=== PATIENT | female | born 1955 | race African-American/Black ===

== ENCOUNTER 2016-10-12 12:24 | Emergency (ER) | payer OTHER ==
[~2016-10-12] VITALS: Ht 154.9 cm; Wt 51.0 kg
[~2016-10-12 12:24] MED LIST: ALBUAER3 INH; AMIT1TAB79 PO; ASPI81CH CHEW; CLON.5 PO; FEXO1TAB97 PO; LISI-519 PO; MECL25CH CHEW; MEGE40TA PO; METH750T PO; METO25TA3 PO; PERC7.5T13 PO; PROM25TA5 PO; VENTAER INH; ZOFR4TAB PO
[2016-10-12 12:27] VITALS: BP 146/99; PULSE 105; RESP 17; TEMP 98.1; O2SAT 98
[2016-10-12] MEDS ORDERED: SODIUM CHLORIDE 0.9% FLUSH 10 ML FLUSH IVF PRN (12:45)
--- NOTE | 2016-10-12 12:49 | PD ---
HPI Chief Complaint: Cardiac Complaint Time Seen by Provider: 12:44 Travel History International Travel<30 days: No Contact w/Intl Traveler<30days: No Traveled to known affect area: No History of Present Illness HPI 60-year-old female presents to the emergency department for evaluation of hypertension. She states she went to her pain management physician on Sunday and her blood pressure was 176 all. She states this is not normal for her. She states that she was on lisinopril 5 mg daily, but has not for 3 months due to mail order issues. The patient reports history of hypertension, asthma, COPD , chronic sciatica. She denies drinking alcohol or using tobacco products. She does state she smokes marijuana. The patient denies any cardiac history. No history of congestive heart failure, NE. She denies any previous surgeries. She does state that she has been short of breath with dizziness and palpitations since over the weekend. She denies any chest pain. Patient denies any recent travel or surgeries. No history DVT or PE. She denies any leg edema. No hemoptysis. She states the symptoms are not new to her as she always gets the symptoms that she runs out of her blood pressure medication. She denies any cough or congestion. Patient is only requesting refill of her medication at this time. PFSH Past Medical History Asthma: Yes Anxiety: Yes Depression: Yes Cancer: Yes (COLON-2015) Cardiovascular Problems: Yes (SKIPS BEAT/RAPID HEART RATE) High Cholesterol: Yes Diminished Hearing: No GERD: Yes Hypertension: Yes Kidney Stones: Yes Musculoskeletal: Yes (SCIATICA) Respiratory: Yes (asthma) Immunizations Current: Yes Migraines: Yes ?: Not LMP: MENOPAUSAL Menopausal: Yes : 3 Para: 3 Tubal Ligation: Yes Past Surgical History Abdominal Surgery: Yes (COLON/BIOPSY 11/05/14, COLON SURGERY R/T [place]) Cholecystectomy: Yes Hysterectomy: No Social History Alcohol Use: No Tobacco Use: No (2013 QUIT) Substance Use: Yes (MARIJUANA) Allergies-Medications (Allergen,Severity, Reaction): Coded Allergies: Dilaudid (Verified Allergy, Severe, Nausea/Vomiting, 10/12/16) "I BROKE OUT IN A SWEAT, FELT HOT ALL OVER AND WAS FREAKING OUT" Zithromax (Verified Allergy, Intermediate, RASH, ITCHING, 10/12/16) Keflex (Verified Allergy, Mild, RASH, 10/12/16) Tramadol (Verified Allergy, Mild, Rash, 10/12/16) on back of neck Reported Meds & Prescriptions Reported Meds & Active Scripts Active Elavil (Amitriptyline HCl) 25 Mg Tab 0.5 Mg PO HS Reported Megestrol (Megestrol Acetate) 40 Mg Tab 40 Mg PO QID Lisinopril 5 Mg Tab 5 Mg PO DAILY Aspirin 81 Mg Chew 81 Mg CHEW DAILY Phenergan (Promethazine HCl) 25 Mg Tab 25 Mg PO Q6H PRN Klonopin (Clonazepam) 0.5 Mg Tab 0.5 Mg PO BID Zofran (Ondansetron HCl) 4 Mg Tab 4 Mg PO Q6HR PRN Methocarbamol 750 Mg Tab 750 Mg PO QID Meclizine (Meclizine HCl) 25 Mg Chew 25 Mg CHEW TID Loraine-D 24 Hour Allergy (Fexofenadine-Pseudoephedrine ER 24 HR) 180-240 Escobar 1 Tab PO DAILY Proair Hfa 8.5 GM Inh (Albuterol Sulfate) 90 Mcg/Act Aer 1 Puff INH Q6HR PRN 108 mcg/actuation Ventolin Hfa 18 GM Inh (Albuterol Sulfate) 90 Mcg/Act Aer 2 Puff INH Q4H PRN Review of Systems Except as stated in HPI: all other systems reviewed are Neg Physical Exam Narrative GENERAL: Well-nourished, well-developed female patient, ambulatory. Afebrile. SKIN: Focused skin assessment warm/dry. HEAD: Normocephalic. Atraumatic. EYES: No scleral icterus. No injection or drainage. NECK: Supple, trachea midline. No JVD or lymphadenopathy. CARDIOVASCULAR: Regular rate and rhythm without murmurs, gallops, or rubs. RESPIRATORY: Breath sounds equal bilaterally. No accessory muscle use. Lungs sounds are clear to auscultation. GASTROINTESTINAL: Abdomen soft, non-tender, nondistended. MUSCULOSKELETAL: No cyanosis, or edema. BACK: Nontender without obvious deformity. No CVA tenderness. Data Data Last Documented VS Vital Signs Date Time Temp Pulse Resp B/P Pulse Ox O2 Delivery O2 Flow Rate FiO2 10/12/16 13:17 99 Room Air 10/12/16 12:27 98.1 105 17 146/99 Orders Electrocardiogram (10/12/16 12:42) Basic Metabolic Panel (Bmp) (10/12/16 12:42) Ckmb (Isoenzyme) Profile (10/12/16 12:42) Complete Blood Count With Diff (10/12/16 12:42) Magnesium (Mg) (10/12/16 12:42) Troponin I (10/12/16 12:42) Chest, Single Ap (10/12/16 12:42) Ecg Monitoring (10/12/16 12:42) Bilateral Bp Monitoring (10/12/16 12:42) Iv Access Insert/Monitor (10/12/16 12:42) Oximetry (10/12/16 12:42) Oxygen Administration (10/12/16 12:42) Sodium Chloride 0.9% Flush (Ns Flush) (10/12/16 12:45) Labs Laboratory Tests Test 10/12/16 12:50 White Blood Count 3.9 TH/MM3 Red Blood Count 4.68 MIL/MM3 Hemoglobin 11.6 GM/DL Hematocrit 36.2 % Mean Corpuscular Volume 77.3 FL Mean Corpuscular Hemoglobin 24.8 PG Mean Corpuscular Hemoglobin 32.1 % Concent Red Cell Distribution Width 14.6 % Platelet Count 262 TH/MM3 Mean Platelet Volume 8.7 FL Neutrophils (%) (Auto) 24.4 % Lymphocytes (%) (Auto) 58.8 % Monocytes (%) (Auto) 10.9 % Eosinophils (%) (Auto) 5.3 % Basophils (%) (Auto) 0.6 % Neutrophils # (Auto) 0.9 TH/MM3 Lymphocytes # (Auto) 2.3 TH/MM3 Monocytes # (Auto) 0.4 TH/MM3 Eosinophils # (Auto) 0.2 TH/MM3 Basophils # (Auto) 0.0 TH/MM3 CBC Comment AUTO DIFF Differential Total Cells 100 Counted Neutrophils % (Manual) 31 % Lymphocytes % 56 % Monocytes % 9 % Eosinophils % 4 % Neutrophils # (Manual) 1.2 TH/MM3 Differential Comment FINAL DIFF MANUAL Platelet Estimate NORMAL Platelet Morphology Comment NORMAL Ovalocytes 1+ Sodium Level 140 MEQ/L Potassium Level 3.3 MEQ/L Chloride Level 107 MEQ/L Carbon Dioxide Level 25.7 MEQ/L Anion Gap 7 MEQ/L Blood Urea Nitrogen 9 MG/DL Creatinine 0.70 MG/DL Estimat Glomerular Filtration 103 ML/MIN Rate Random Glucose 84 MG/DL Calcium Level 9.1 MG/DL Magnesium Level 1.9 MG/DL Total Creatine Kinase 74 U/L Troponin I LESS THAN 0.02 NG/ML MDM Medical Decision Making Medical Screen Exam Complete: Yes Emergency Medical Condition: Yes Medical Record Reviewed: Yes Interpretation(s) chest x-ray - CONCLUSION: The lungs are clear. Differential Diagnosis Medication refill versus hypertension versus COPD exacerbation versus unlikely ACS Narrative Course 60-year-old female presents to the emergency department requesting a refill for lisinopril 5 mg. She does state that she has had some palpitations, shortness breath, dizziness since over the weekend. She states these symptoms are common , and for her when she is out of her lisinopril. She does appear well on physical exam. She denies any chest pain. I discussed the case with my attending physician, Dr. Perea, who agrees with plan and disposition. EKG, CBC, BMP, magnesium, CK, troponin, chest x-ray are ordered and pending. EKG shows sinus rhythm, heart rate 87, no acute ST changes. This was read and interpreted by my attending physician, Dr. Perea. CBC shows no acute abnormality. BMP shows hypokalemia of 3.3, otherwise no acute abnormality. Magnesium is 1.9. CK is 74. Troponin is less than 0.02. Chest x-ray shows no acute abnormality. My attending physician, Dr. Perea, agrees patient is stable for discharge home. Patient was discharged prescription for her lisinopril. She is instructed to follow-up with her primary care physician. She is return for any acute worsening of symptoms. Patient is given potassium 20 meq for hypokalemia. Patient verbalizes agreement and understanding. The patient was discharged in stable condition with instructions, including return instructions and follow up instructions. Diagnosis Primary Impression: Essential (primary) hypertension Referrals: Primary Care Physician call for appointment Patient Instructions: Chronic Hypertension (ED), General Instructions Additional Instructions: Take lisinopril daily as directed. This is free of [employer]. Please obtain further refills from your primary care physician. Return to the emergency department for any acute worsening of symptoms. Med/Other Pt SpecificInfo: Prescription(s) given Scripts Lisinopril 5 Mg Tab5 Mg PO DAILY #30 TAB Ref 0 Prov:Lois Gonzales 10/12/16 Disposition: 01 DISCHARGE HOME Condition: Stable Lois Gonzales Oct 12, 2016 12:49
[2016-10-12 13:10] LABS: AUTOMATED NEUTROPHIL # 0.9 TH/MM3 (1.8-7.7); BASOPHIL % 0.6 % (0.0-2.0); EOSINOPHIL # 0.2 TH/MM3 (0-0.4); EOSINOPHIL % 5.3 % (0.0-4.0); HEMATOCRIT 36.2 % (35.0-46.0); LYMPH % 58.8 % (9.0-44.0); LYMPHOCYTE # 2.3 TH/MM3 (1.0-4.8); MEAN CELL VOLUME 77.3 FL (80.0-100.0); MEAN CORPUSCULAR HEMOGLOBIN 24.8 PG (27.0-34.0); MEAN CORPUSCULAR HGB CONC 32.1 % (32.0-36.0); MONO % 10.9 % (0.0-8.0); NEUT % 24.4 % (16.0-70.0); PLATELET COUNT 262 TH/MM3 (150-450); RED BLOOD COUNT 4.68 MIL/MM3 (4.00-5.30); RED CELL DISTRIBUTION WIDTH 14.6 % (11.6-17.2); WHITE BLOOD COUNT 3.9 TH/MM3 (4.0-11.0)
[2016-10-12 13:13] LABS: HEMO FLAGS AUTO DIFF
[2016-10-12 13:32] LABS: ANION GAP 7 MEQ/L (5-15); BICARBONATE 25.7 MEQ/L (21.0-32.0); BLOOD UREA NITROGEN 9 MG/DL (7-18); CHLORIDE 107 MEQ/L (98-107); GLOMERULAR FILTRATION RATE 103 ML/MIN (>89); MAGNESIUM 1.9 MG/DL (1.5-2.5); POTASSIUM 3.3 MEQ/L (3.5-5.1); SODIUM (NA) 140 MEQ/L (136-145)
[2016-10-12 13:36] LABS: CREATINE KINASE 74 U/L (26-192)
[2016-10-12 13:37] LABS: EOSINOPHILS 4 % (0-4); NEUTROPHIL # MANUAL DIFF 1.2 TH/MM3 (1.8-7.7); POLYS (SEG NEUTROPHILS) 31 % (16-70); WBC DIFF SAMPLE 100
[2016-10-12 13:38] LABS: OVALOCYTES 1+ (NORMAL); PLATELET ESTIMATE SMEAR NORMAL (NORMAL)
[2016-10-12 13:39] LABS: PLATELET MORPHOLOGY NORMAL (NORMAL); SCAN/DIFF FINAL DIFF MANUAL
--- NOTE | 2016-10-12 14:17 | RADRPT ---
EXAM DATE/TIME: 10/12/2016 13:14 [facility] COMPARISON: CHEST SINGLE AP, April 22, 2016, 2:58. INDICATIONS : Syncope, increased heart rate, shortness of breath. MEDICAL HISTORY : Hypertension. Carcinoma, colon. Gastroesophageal reflux disease. Asthma. SURGICAL HISTORY : None. ENCOUNTER: Initial ACUITY: 1 day PAIN SCORE: 0/10 LOCATION: Bilateral chest FINDINGS: A single view of the chest demonstrates the lungs to be symmetrically aerated without evidence of mas s, infiltrate or effusion. The cardiomediastinal contours are unremarkable. Osseous structures are intact. CONCLUSION: The lungs are clear. Ga Brito MD on October 12, 2016 at 14:15 Board Certified Radiologist. This report was verified electronically.
[2016-10-12] MEDS ORDERED: LISI-519 PO (14:20)
[2016-10-12] MEDS ORDERED: POTASSIUM CHLORIDE 20 MEQ CONTROLLED RELEASE TAB PO ONE (14:30)
--- NOTE | 2016-10-13 13:33 | EKG ---
Date Performed: 10/12/2016 Time Performed: 13:00:57 PTAGE: 60 years EKG: Sinus rhythm RIGHT ATRIAL ENLARGEMENT LEFT ATRIAL ENLARGEMENT NONSPECIFIC T-WAVE ABNORMALITY Compared to prior tr acing no significant change ABNORMAL ECG PREVIOUS TRACING : 03/28/2016 23.16 DOCTOR: Burt Mendez Interpretating Date/Time 10/13/2016 13:32:12
== END 2016-10-12 15:25 | disposition home or self-care (01) ==
LOC: NEPD 12:24
DX: I10 Essential (primary) hypertension (principal); F12.90 Cannabis use, unspecified, uncomplicated; R94.31 Abnormal electrocardiogram [ECG] [EKG]; Z87.891 Personal history of nicotine dependence
CPT/HCPCS: 71010; 80048; 82550; 83735; 84484; 85007; 85027; 93005

== ENCOUNTER 2017-02-07 20:24 | Emergency (ER) | payer OTHER ==
[~2017-02-07 20:24] MED LIST changes: -METO25TA3 PO; -PERC7.5T13 PO
[2017-02-07 20:25] VITALS: BP 142/85; PULSE 124; RESP 16; TEMP 98.2; O2SAT 98
--- NOTE | 2017-02-07 21:42 | PD ---
HPI Chief Complaint: Anxiety Time Seen by Provider: 21:40 Travel History International Travel<30 days: No Contact w/Intl Traveler<30days: No Traveled to known affect area: No History of Present Illness HPI Ms. Diez is a 61-year-old female with a history of anxiety and depression presents emergency Department with anxiety. She states she been out of her Klonopin for a few days. 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 States her last prescription was approximate month ago was she thinks 40 tablets. She states it takes usually only one a day but takes up to 2 as needed. The patient states that older family members were involved in a tragic accident she has to go to take care of her son and granddaughter final arrangements. She is flying tomorrow. She states that she is normally tachycardic and intermittently has some chest discomfort but has a stress test in the past 2 months and does not want any workup for that. Patient denies any shortness breath abdominal pain nausea vomiting diarrhea. She does endorse some intermittent chest discomfort which she cannot describe further. PFSH Past Medical History Asthma: Yes Anxiety: Yes Depression: Yes Cancer: Yes (COLON-2015) Cardiovascular Problems: Yes (SKIPS BEAT/RAPID HEART RATE) High Cholesterol: Yes Diminished Hearing: No GERD: Yes Hypertension: Yes Kidney Stones: Yes Musculoskeletal: Yes (SCIATICA) Respiratory: Yes (asthma) Immunizations Current: Yes Migraines: Yes Menopausal: Yes : 3 Para: 3 Tubal Ligation: Yes Past Surgical History Abdominal Surgery: Yes (COLON/BIOPSY 11/05/14, COLON SURGERY R/T [place]) Cholecystectomy: Yes Hysterectomy: No Social History Alcohol Use: No Tobacco Use: No (2013 QUIT) Substance Use: Yes (MARIJUANA) Allergies-Medications (Allergen,Severity, Reaction): Coded Allergies: Dilaudid (Verified Allergy, Severe, Nausea/Vomiting, 02/07/17) "I BROKE OUT IN A SWEAT, FELT HOT ALL OVER AND WAS FREAKING OUT" Zithromax (Verified Allergy, Intermediate, RASH, ITCHING, 02/07/17) Keflex (Verified Allergy, Mild, RASH, 02/07/17) Tramadol (Verified Allergy, Mild, Rash, 02/07/17) on back of neck Reported Meds & Prescriptions Reported Meds & Active Scripts Active Clonazepam 0.5 Mg Tab 0.5 Mg PO BID PRN Lisinopril 5 Mg Tab 5 Mg PO DAILY Elavil (Amitriptyline HCl) 25 Mg Tab 0.5 Mg PO HS Reported Megestrol (Megestrol Acetate) 40 Mg Tab 40 Mg PO QID Aspirin 81 Mg Chew 81 Mg CHEW DAILY Phenergan (Promethazine HCl) 25 Mg Tab 25 Mg PO Q6H PRN Klonopin (Clonazepam) 0.5 Mg Tab 0.5 Mg PO BID Zofran (Ondansetron HCl) 4 Mg Tab 4 Mg PO Q6HR PRN Methocarbamol 750 Mg Tab 750 Mg PO QID Meclizine (Meclizine HCl) 25 Mg Chew 25 Mg CHEW TID Loraine-D 24 Hour Allergy (Fexofenadine-Pseudoephedrine ER 24 HR) 180-240 Escobar 1 Tab PO DAILY Proair Hfa 8.5 GM Inh (Albuterol Sulfate) 90 Mcg/Act Aer 1 Puff INH Q6HR PRN 108 mcg/actuation Ventolin Hfa 18 GM Inh (Albuterol Sulfate) 90 Mcg/Act Aer 2 Puff INH Q4H PRN Review of Systems Except as stated in HPI: all other systems reviewed are Neg Physical Exam Narrative GENERAL: Well-developed well-nourished no apparent distress. SKIN: Focused skin assessment warm/dry. HEAD: Atraumatic. Normocephalic. EYES: Pupils equal and round. No scleral icterus. No injection or drainage. ENT: No nasal bleeding or discharge. Mucous membranes pink and moist. NECK: Trachea midline. No JVD. CARDIOVASCULAR: Slightly tachycardic with regular rhythm. No murmur appreciated. RESPIRATORY: No accessory muscle use. Clear to auscultation. Breath sounds equal bilaterally. GASTROINTESTINAL: Abdomen soft, non-tender, nondistended. Hepatic and splenic margins not palpable. MUSCULOSKELETAL: No obvious deformities. No clubbing. No cyanosis. No edema. NEUROLOGICAL: Awake and alert. No obvious cranial nerve deficits. Motor grossly within normal limits. Normal speech. PSYCHIATRIC: Anxious mood and affect; insight and judgment normal. Data Data Last Documented VS Vital Signs Date Time Temp Pulse Resp B/P Pulse Ox O2 Delivery O2 Flow Rate FiO2 02/07/17 22:22 110 18 158/100 100 Room Air 02/07/17 20:25 98.2 [facility] Medical Decision Making Medical Screen Exam Complete: Yes Emergency Medical Condition: Yes Differential Diagnosis Tachycardia, anxiety, benzodiazepine withdrawal, cardiac disease, pulmonary disease. Narrative Course Patient was roomed in emergency department, she appears well in no obvious distress. Very delightful young lady who's had an unfortunate demise of her family. I have discussed the patient that given her tachycardia and intermittent chest discomfort would recommend cardiac workup and consideration for chest pain center. 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 She is a smoker. I've discussed with her that I'm not obligated to treat her long-standing anxiety but I can prescribe a short course until she follows up with her regular prescriber. She verbalized understanding and agreement. She again declined any workup here in the emergency department. She stable for discharge Diagnosis Primary Impression: Anxiety Med/Other Pt SpecificInfo: Prescription(s) given Scripts Clonazepam 0.5 Mg Tab0.5 Mg PO BID PRN (ANXIETY) #10 TAB Ref 0 Prov:Guy Longo MD 02/07/17 Disposition: 01 DISCHARGE HOME Condition: Stable Guy Longo MD Feb 07, 2017 21:42
[2017-02-07] MEDS ORDERED: CLON0.5T PO (21:55)
[2017-02-07 22:22] VITALS: BP 158/100; PULSE 110; RESP 18; O2SAT 100
== END 2017-02-07 22:34 | disposition home or self-care (01) ==
LOC: NEPD 20:24
DX: F41.9 Anxiety disorder, unspecified (principal)
CPT/HCPCS: 99283

== ENCOUNTER 2017-02-18 11:48 | Emergency (ER) | payer OTHER ==
[~2017-02-18] VITALS: Ht 154.9 cm; Wt 62.0 kg
[~2017-02-18 11:48] MED LIST changes: +CLON0.5T PO
[2017-02-18 11:50] VITALS: BP 180/99; PULSE 120; RESP 20; TEMP 97.9; O2SAT 99
--- NOTE | 2017-02-18 12:19 | PD ---
HPI Chief Complaint: Abdominal Pain Time Seen by Provider: 12:19 Travel History International Travel<30 days: No Contact w/Intl Traveler<30days: No Traveled to known affect area: No History of Present Illness HPI 61-year-old female with history of hypertension, asthma, anxiety, colon cancer in remission, presents to emergency department for evaluation of worsening abdominal pain and girth. Patient states since then over the last month. She has followed up with her oncologist who has ordered outpatient images. These were done on January 25. Patient states she does not know the results of these and is very concerned that something may be wrong. Denies any fever or chills. Mild nausea without vomiting. No urinary or bowel changes. No marilee red stools or black tarry stools. Patient denies chest pain or tightness. No difficulty breathing. No other symptoms to report. PFSH Past Medical History Asthma: Yes Anxiety: Yes Depression: Yes Cancer: Yes (COLON-2014) Cardiovascular Problems: Yes (SKIPS BEAT/RAPID HEART RATE) High Cholesterol: Yes Diminished Hearing: No GERD: Yes Hypertension: Yes Kidney Stones: Yes Musculoskeletal: Yes (SCIATICA) Respiratory: Yes (asthma) Immunizations Current: Yes Migraines: Yes ?: Not Menopausal: Yes : 3 Para: 3 Tubal Ligation: Yes Past Surgical History Abdominal Surgery: Yes (COLON/BIOPSY 11/05/14, COLON SURGERY R/T [place]) Cholecystectomy: Yes Hysterectomy: No Social History Alcohol Use: No Tobacco Use: Yes Substance Use: Yes (MARIJUANA) Allergies-Medications (Allergen,Severity, Reaction): Coded Allergies: Dilaudid (Verified Allergy, Severe, Nausea/Vomiting, 02/07/17) "I BROKE OUT IN A SWEAT, FELT HOT ALL OVER AND WAS FREAKING OUT" Zithromax (Verified Allergy, Intermediate, RASH, ITCHING, 02/07/17) Keflex (Verified Allergy, Mild, RASH, 02/07/17) Tramadol (Verified Allergy, Mild, Rash, 02/07/17) on back of neck Reported Meds & Prescriptions Reported Meds & Active Scripts Active Clonazepam 0.5 Mg Tab 0.5 Mg PO BID PRN Lisinopril 5 Mg Tab 5 Mg PO DAILY Reported Megestrol (Megestrol Acetate) 40 Mg Tab 40 Mg PO QID Aspirin 81 Mg Chew 81 Mg CHEW DAILY Klonopin (Clonazepam) 0.5 Mg Tab 0.5 Mg PO BID Zofran (Ondansetron HCl) 4 Mg Tab 4 Mg PO Q6HR PRN Methocarbamol 750 Mg Tab 750 Mg PO QID Loraine-D 24 Hour Allergy (Fexofenadine-Pseudoephedrine ER 24 HR) 180-240 Escobar 1 Tab PO DAILY Proair Hfa 8.5 GM Inh (Albuterol Sulfate) 90 Mcg/Act Aer 1 Puff INH Q6HR PRN 108 mcg/actuation Ventolin Hfa 18 GM Inh (Albuterol Sulfate) 90 Mcg/Act Aer 2 Puff INH Q4H PRN Review of Systems Except as stated in HPI: all other systems reviewed are Neg Physical Exam Narrative GENERAL: Well-nourished female patient, anxious, but in no acute distress SKIN: Warm and dry. HEAD: Atraumatic. Normocephalic. EYES: Pupils equal and round. No scleral icterus. No injection or drainage. ENT: No nasal bleeding or discharge. Mucous membranes pink and moist. NECK: Trachea midline. No JVD. CARDIOVASCULAR: Tachycardic rate and rhythm. RESPIRATORY: No accessory muscle use. Clear to auscultation. Breath sounds equal bilaterally. GASTROINTESTINAL: Abdomen soft, rotund, generalized tenderness. No guarding. No rebound tenderness. Hepatic and splenic margins not palpable. MUSCULOSKELETAL: Extremities without clubbing, cyanosis, or edema. No obvious deformities. NEUROLOGICAL: Awake and alert. No obvious cranial nerve deficits. Motor grossly within normal limits. Five out of 5 muscle strength in the arms and legs. Normal speech. PSYCHIATRIC: Appropriate mood and affect; insight and judgment normal. Data Data Last Documented VS Vital Signs Date Time Temp Pulse Resp B/P Pulse Ox O2 Delivery O2 Flow Rate FiO2 02/18/17 12:31 98 02/18/17 11:50 97.9 120 20 180/99 Room Air Orders Complete Blood Count With Diff (02/18/17 12:17) Comprehensive Metabolic Panel (02/18/17 12:17) Lipase (02/18/17 12:17) Prothrombin Time / Inr (Pt) (02/18/17 12:17) Act Partial Throm Time (Ptt) (02/18/17 12:17) Urinalysis - C+S If Indicated (02/18/17 12:17) Iv Access Insert/Monitor (02/18/17 12:17) Ecg Monitoring (02/18/17 12:17) Oximetry (02/18/17 12:17) Sodium Chloride 0.9% Flush (Ns Flush) (02/18/17 12:30) Electrocardiogram (02/18/17 12:17) Ketorolac Inj (Toradol Inj) (02/18/17 12:30) Sodium Chlor 0.9% 1000 Ml Inj (Ns 1000 M (02/18/17 12:30) Labs Laboratory Tests Test 02/18/17 12:20 White Blood Count 8.8 TH/MM3 Red Blood Count 4.89 MIL/MM3 Hemoglobin 12.8 GM/DL Hematocrit 40.0 % Mean Corpuscular Volume 81.7 FL Mean Corpuscular Hemoglobin 26.2 PG Mean Corpuscular Hemoglobin 32.1 % Concent Red Cell Distribution Width 14.7 % Platelet Count 323 TH/MM3 Mean Platelet Volume 7.9 FL Neutrophils (%) (Auto) 62.6 % Lymphocytes (%) (Auto) 28.7 % Monocytes (%) (Auto) 8.0 % Eosinophils (%) (Auto) 0.3 % Basophils (%) (Auto) 0.4 % Neutrophils # (Auto) 5.5 TH/MM3 Lymphocytes # (Auto) 2.5 TH/MM3 Monocytes # (Auto) 0.7 TH/MM3 Eosinophils # (Auto) 0.0 TH/MM3 Basophils # (Auto) 0.0 TH/MM3 CBC Comment DIFF FINAL Differential Comment Prothrombin Time 10.0 SEC Prothromb Time International 0.9 RATIO Ratio Activated Partial 23.5 SEC Thromboplast Time Urine Color LIGHT-YELLOW Urine Turbidity CLEAR Urine pH 7.0 Urine Specific [place] 1.005 Urine Protein NEG mg/dL Urine Glucose (UA) NEG mg/dL Urine Ketones NEG mg/dL Urine Occult Blood NEG Urine Nitrite NEG Urine Bilirubin NEG Urine Urobilinogen LESS THAN 2.0 MG/DL Urine Leukocyte Esterase NEG Urine RBC LESS THAN 1 /hpf Microscopic Urinalysis Comment CULT NOT INDICATED Sodium Level 137 MEQ/L Potassium Level 4.1 MEQ/L Chloride Level 105 MEQ/L Carbon Dioxide Level 23.9 MEQ/L Anion Gap 8 MEQ/L Blood Urea Nitrogen 14 MG/DL Creatinine 0.90 MG/DL Estimat Glomerular Filtration 77 ML/MIN Rate Random Glucose 111 MG/DL Calcium Level 9.1 MG/DL Total Bilirubin 0.6 MG/DL Aspartate Amino Transf 16 U/L (AST/SGOT) Alanine Aminotransferase 11 U/L (ALT/SGPT) Alkaline Phosphatase 45 U/L Total Protein 7.7 GM/DL Albumin 3.7 GM/DL Lipase 96 U/L MDM Medical Decision Making Medical Screen Exam Complete: Yes Emergency Medical Condition: Yes Medical Record Reviewed: Yes Differential Diagnosis Anxiety versus abdominal pain acute versus chronic versus constipation versus indigestion versus metastatic disease Narrative Course 61-year-old female presents to emergency department for evaluation. Patient appears anxious. She is tearful. She is also tachycardic. After talking with the patient, she does calm down and her heart rate normalizes. I discussed the patient my attending who is also assessed her. Lab work is complete without any acute abnormality. In review of her records CT of the abdomen and pelvis with IV contrast completed January 25, 2017 shows no evidence of metastatic disease. There are 2 small subcentimeter hypodensities in the liver which has been stable for one year. These likely represent cysts. There is a stable 1.4 cm left adrenal gland mass that has been stable for 2 years. 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 Evidence of prior right colon resection. I have discussed the findings with the patient. She verbalizes thinks and relief. She agrees to follow-up with her primary care provider. She'll return immediately with any acute worsening of symptoms. Diagnosis Primary Impression: Abdominal pain Qualified Code: R10.10 - Pain of upper abdomen Additional Impressions: Abdominal distension Anxiety Referrals: [facility] Director Oncologist Primary Care Physician Patient Instructions: Abdominal Pain (ED), General Instructions Additional Instructions: Follow up with your primary care provider Continue medications as prescribed Return to ED with acute worsening of symptoms Med/Other Pt SpecificInfo: No Change to Meds Disposition: 01 DISCHARGE HOME Condition: Stable Lisa Espino FABIANA Feb 18, 2017 12:19
[2017-02-18] MEDS ORDERED: SODIUM CHLORIDE 0.9% FLUSH 10 ML FLUSH IV FLUSH PRN (12:30)
[2017-02-18] MEDS ORDERED: SODIUM CHLOR 0.9% 1000 ML INJ 1,000 ML IV ONE (12:30)
[2017-02-18] MEDS ORDERED: KETOROLAC TROMETHAMINE 30 MG/ML (IVP) VIAL IV PUSH ONE (12:30)
[2017-02-18 12:31] VITALS: O2SAT 98
[2017-02-18 12:43] LABS: AUTOMATED NEUTROPHIL # 5.5 TH/MM3 (1.8-7.7); BASOPHIL % 0.4 % (0.0-2.0); EOSINOPHIL % 0.3 % (0.0-4.0); HEMO FLAGS DIFF FINAL; LYMPH % 28.7 % (9.0-44.0); LYMPHOCYTE # 2.5 TH/MM3 (1.0-4.8); MEAN CELL VOLUME 81.7 FL (80.0-100.0); MEAN CORPUSCULAR HEMOGLOBIN 26.2 PG (27.0-34.0); MEAN CORPUSCULAR HGB CONC 32.1 % (32.0-36.0); NEUT % 62.6 % (16.0-70.0); PLATELET COUNT 323 TH/MM3 (150-450); RED BLOOD COUNT 4.89 MIL/MM3 (4.00-5.30); RED CELL DISTRIBUTION WIDTH 14.7 % (11.6-17.2); WHITE BLOOD COUNT 8.8 TH/MM3 (4.0-11.0)
[2017-02-18 12:48] LABS: BLOOD, URINE NEG (NEG); GLUCOSE,URINE NEG (NEG); KETONE, URINE NEG (NEG); NITRITE,URINE NEG (NEG); URINE COLOR LIGHT-YELLOW (YELLW/STRAW)
[2017-02-18 12:50] LABS: COMMENT (UR) CULT NOT INDICATED; CULTURE IF INDICATED CULT NOT INDICATED
[2017-02-18 12:53] LABS: APTT (PATIENT) 23.5 SEC (24.3-30.1); INTERNATIONAL NORMALIZED RATIO 0.9 RATIO
[2017-02-18 13:05] LABS: ALKALINE PHOSPHATASE 45 U/L (45-117); TOTAL BILIRUBIN ADULT 0.6 MG/DL (0.2-1.0)
[2017-02-18 13:12] LABS: ALT (GPT) 11 U/L (10-53); ANION GAP 8 MEQ/L (5-15); AST (GOT) 16 U/L (15-37); BICARBONATE 23.9 MEQ/L (21.0-32.0); BLOOD UREA NITROGEN 14 MG/DL (7-18); CHLORIDE 105 MEQ/L (98-107); GLOMERULAR FILTRATION RATE 77 ML/MIN (>89); POTASSIUM 4.1 MEQ/L (3.5-5.1); SODIUM (NA) 137 MEQ/L (136-145)
--- NOTE | 2017-02-18 13:40 | PD ---
Data Data Last Documented VS Vital Signs Date Time Temp Pulse Resp B/P Pulse Ox O2 Delivery O2 Flow Rate FiO2 02/18/17 12:31 98 02/18/17 11:50 97.9 120 20 180/99 Room Air Orders Complete Blood Count With Diff (02/18/17 12:17) Comprehensive Metabolic Panel (02/18/17 12:17) Lipase (02/18/17 12:17) Prothrombin Time / Inr (Pt) (02/18/17 12:17) Act Partial Throm Time (Ptt) (02/18/17 12:17) Urinalysis - C+S If Indicated (02/18/17 12:17) Iv Access Insert/Monitor (02/18/17 12:17) Ecg Monitoring (02/18/17 12:17) Oximetry (02/18/17 12:17) Sodium Chloride 0.9% Flush (Ns Flush) (02/18/17 12:30) Electrocardiogram (02/18/17 12:17) Ketorolac Inj (Toradol Inj) (02/18/17 12:30) Sodium Chlor 0.9% 1000 Ml Inj (Ns 1000 M (02/18/17 12:30) Labs Laboratory Tests Test 02/18/17 12:20 White Blood Count 8.8 TH/MM3 Red Blood Count 4.89 MIL/MM3 Hemoglobin 12.8 GM/DL Hematocrit 40.0 % Mean Corpuscular Volume 81.7 FL Mean Corpuscular Hemoglobin 26.2 PG Mean Corpuscular Hemoglobin 32.1 % Concent Red Cell Distribution Width 14.7 % Platelet Count 323 TH/MM3 Mean Platelet Volume 7.9 FL Neutrophils (%) (Auto) 62.6 % Lymphocytes (%) (Auto) 28.7 % Monocytes (%) (Auto) 8.0 % Eosinophils (%) (Auto) 0.3 % Basophils (%) (Auto) 0.4 % Neutrophils # (Auto) 5.5 TH/MM3 Lymphocytes # (Auto) 2.5 TH/MM3 Monocytes # (Auto) 0.7 TH/MM3 Eosinophils # (Auto) 0.0 TH/MM3 Basophils # (Auto) 0.0 TH/MM3 CBC Comment DIFF FINAL Differential Comment Prothrombin Time 10.0 SEC Prothromb Time International 0.9 RATIO Ratio Activated Partial 23.5 SEC Thromboplast Time Urine Color LIGHT-YELLOW Urine Turbidity CLEAR Urine pH 7.0 Urine Specific [place] 1.005 Urine Protein NEG mg/dL Urine Glucose (UA) NEG mg/dL Urine Ketones NEG mg/dL Urine Occult Blood NEG Urine Nitrite NEG Urine Bilirubin NEG Urine Urobilinogen LESS THAN 2.0 MG/DL Urine Leukocyte Esterase NEG Urine RBC LESS THAN 1 /hpf Microscopic Urinalysis Comment CULT NOT INDICATED Sodium Level 137 MEQ/L Potassium Level 4.1 MEQ/L Chloride Level 105 MEQ/L Carbon Dioxide Level 23.9 MEQ/L Anion Gap 8 MEQ/L Blood Urea Nitrogen 14 MG/DL Creatinine 0.90 MG/DL Estimat Glomerular Filtration 77 ML/MIN Rate Random Glucose 111 MG/DL Calcium Level 9.1 MG/DL Total Bilirubin 0.6 MG/DL Aspartate Amino Transf 16 U/L (AST/SGOT) Alanine Aminotransferase 11 U/L (ALT/SGPT) Alkaline Phosphatase 45 U/L Total Protein 7.7 GM/DL Albumin 3.7 GM/DL Lipase 96 U/L MDM Supervised Visit with MARIN: Yes Narrative Course The history, exam, and medical decision-making in the associated mid-level provider note were completed with my assistance. I reviewed and agree with the findings presented. I attest that I had a [id number] encounter with the patient on the same day, and personally performed and documented my assessment and findings in the medical record. *My assessment and Findings: 61-year-old woman with abdominal pain. History of colon CA status post right sided colectomy a couple years ago. She's had multiple scans since then with no residual pathology. She does scan on the with her oncologist with no new malignancy and no evidence of obstruction or blockage. She describes abdominal pain following the past day or so. No vomiting. Normal bowel movements. Looks well. Benign exam. She does feel more full. She's had trouble with anxiety and chronic pain as well. She been off her chronic pain medicines now of anxiety medicines. I think this is probably more contribute in fact her. They gave she looks well, labs unremarkable, recommend outpatient follow-up. Diagnosis Primary Impression: Abdominal pain Qualified Code: R10.10 - Pain of upper abdomen Additional Impressions: Abdominal distension Anxiety Referrals: [employer] Oncologist Primary Care Physician Patient Instructions: General Instructions, Abdominal Pain (ED) Departure Forms: Tests/Procedures Additional Instruction: Follow up with your primary care provider Continue medications as prescribed Return to ED with acute worsening of symptoms Disposition: 01 DISCHARGE HOME Condition: Stable Lev Merino MD Feb 18, 2017 13:40
--- NOTE | 2017-02-19 16:37 | EKG ---
Date Performed: 02/18/2017 Time Performed: 12:34:18 PTAGE: 61 years EKG: Sinus rhythm POSSIBLE RIGHT ATRIAL ENLARGEMENT MODERATE VOLTAGE CRITERIA FOR LVH, CONSIDER NORMAL VARIANT NONSPEC IFIC ST & T-WAVE ABNORMALITY BORDERLINE ECG PREVIOUS TRACING : 10/12/2016 13.00 Since previous tracing, no significant change noted DOCTOR: Hayes Sanders Interpretating Date/Time 02/19/2017 16:35:25
== END 2017-02-18 14:44 | disposition home or self-care (01) ==
LOC: NEPE 11:48
DX: R10.10 Upper abdominal pain, unspecified (principal); R14.0 Abdominal distension (gaseous); F41.9 Anxiety disorder, unspecified; G89.29 Other chronic pain; I10 Essential (primary) hypertension; Z72.0 Tobacco use; Z85.038 Personal history of other malignant neoplasm of large intestine
CPT/HCPCS: 80053; 81001; 83690; 85025; 85610; 85730; 93005; 96374; 99284; J1885; J7030

== ENCOUNTER 2017-02-25 22:47 | Emergency (ER) | payer OTHER ==
[~2017-02-25 22:47] MED LIST changes: -AMIT1TAB79 PO; -MECL25CH CHEW; -PROM25TA5 PO
[2017-02-26 02:00] VITALS: BP 140/88; PULSE 97; RESP 17; TEMP 98.4; O2SAT 100
[2017-02-26] MEDS ORDERED: SODIUM CHLOR 0.9% 1000 ML INJ 1,000 ML IV ONE (02:08)
--- NOTE | 2017-02-26 02:10 | PD ---
HPI Chief Complaint: GI Complaint Time Seen by Provider: 02:08 Travel History International Travel<30 days: No Contact w/Intl Traveler<30days: No Traveled to known affect area: No History of Present Illness HPI 61-year-old female presents to the emergency department for multiple complaints including headache near syncope syncope heart racing chest pain shortness of breath nausea vomiting dehydration over hydration hypertension abdominal pain related to history of colon cancer status post resection without chemotherapy or radiation therapy under the care of Dr. Jeffries as her oncologist Dr. Cosby asked her: Surgeon and local pain management physician. Patient is scheduled for pain management injections on Sunday of this week. Patient denies any fever or chills. There is been no hematemesis coffee-ground emesis melena or hematochezia. Patient states she took crushed aspirin at home prior to coming to the hospital and is out of any sublingual medication for nausea and /or vomiting. Patient has had some symptoms for 3 months. PFSH Past Medical History Narrative Medical Asthma anxiety depression colon cancer dyslipidemia palpitations hypertension migraines partial colectomy cholecystectomy tobacco use marijuana use nursing notes reviewed Asthma: Yes Anxiety: Yes Depression: Yes Cancer: Yes (COLON-2014) Cardiovascular Problems: Yes (SKIPS BEAT/RAPID HEART RATE) High Cholesterol: Yes Diminished Hearing: No GERD: Yes Hypertension: Yes Kidney Stones: Yes Musculoskeletal: Yes (SCIATICA) Respiratory: Yes (asthma) Immunizations Current: Yes Migraines: Yes Tetanus Vaccination: Unknown Influenza Vaccination: Yes ?: Not Menopausal: Yes : 3 Para: 3 Tubal Ligation: Yes Past Surgical History Abdominal Surgery: Yes (COLON/BIOPSY 11/05/14, COLON SURGERY R/T CA) Cholecystectomy: Yes Hysterectomy: No Social History Alcohol Use: No Tobacco Use: Yes (2 cigs ) Substance Use: Yes (MARIJUANA daily) Allergies-Medications (Allergen,Severity, Reaction): Coded Allergies: hydromorphone (Unverified Allergy, Severe, Nausea/Vomiting, 02/26/17) "I BROKE OUT IN A SWEAT, FELT HOT ALL OVER AND WAS FREAKING OUT" azithromycin (Unverified Allergy, Intermediate, RASH, ITCHING, 02/26/17) cephalexin (Unverified Allergy, Mild, RASH, 02/26/17) tramadol (Unverified Allergy, Mild, Rash, 8/21/17) on back of neck Reported Meds & Prescriptions Reported Meds & Active Scripts Active Lortab (Hydrocodone-Acetaminophen) 5-325 Mg Tab 1-2 Tab PO Q6H PRN Zofran Odt (Ondansetron Odt) 4 Mg Tab 4 Mg SL Q6HR PRN Lisinopril 5 Mg Tab 5 Mg PO DAILY Reported Robaxin (Methocarbamol) 750 Mg Tab 750 Mg PO QID Quetiapine (Quetiapine Fumarate) 100 Mg Tab 100 Mg PO HS Trazodone (Trazodone HCl) 50 Mg Tab 50 Mg PO HS Escitalopram (Escitalopram Oxalate) 20 Mg Tab 20 Mg PO DAILY Megestrol (Megestrol Acetate) 40 Mg Tab 40 Mg PO QID Aspirin 81 Mg Chew 81 Mg CHEW DAILY Klonopin (Clonazepam) 0.5 Mg Tab 0.5 Mg PO BID Loraine-D 24 Hour Allergy (Fexofenadine-Pseudoephedrine ER 24 HR) 180-240 Escobar 1 Tab PO DAILY Proair Hfa 8.5 GM Inh (Albuterol Sulfate) 90 Mcg/Act Aer 1 Puff INH Q6HR PRN 108 mcg/actuation Ventolin Hfa 18 GM Inh (Albuterol Sulfate) 90 Mcg/Act Aer 2 Puff INH Q4H PRN Review of Systems Except as stated in HPI: all other systems reviewed are Neg General / Constitutional: No: Fever, Chills HENT: No: Congestion Cardiovascular: No: Chest Pain or Discomfort Respiratory: No: Shortness of Breath Gastrointestinal: Positive: Nausea, Vomiting, Abdominal Pain Genitourinary: No: Flank Pain Musculoskeletal: No: Myalgias, Arthralgias Skin: No Rash Neurologic: Positive: Weakness Psychiatric: Positive: Anxiety Hematologic/Lymphatic: No: Lymph Node Enlargement Physical Exam Narrative GENERAL: Well-developed well-nourished female in no acute distress no respiratory distress SKIN: Warm and dry. HEAD: Normocephalic. EYES: No scleral icterus. No injection or drainage. NECK: Supple, trachea midline. No JVD or lymphadenopathy. CARDIOVASCULAR: Regular rate and rhythm without murmurs, gallops, or rubs. RESPIRATORY: Breath sounds equal bilaterally. No accessory muscle use. GASTROINTESTINAL: Abdomen soft, non-tender, nondistended. MUSCULOSKELETAL: No cyanosis, or edema. BACK: Nontender without obvious deformity. No CVA tenderness. Data Data Last Documented VS Orders Orders Complete Blood Count With Diff (02/26/17 02:08) Comprehensive Metabolic Panel (02/26/17 02:08) Magnesium (Mg) (02/26/17 02:08) Ckmb (Isoenzyme) Profile (02/26/17 02:08) Troponin I (02/26/17 02:08) Act Partial Throm Time (Ptt) (02/26/17 02:08) Prothrombin Time / Inr (Pt) (02/26/17 02:08) Urinalysis - C+S If Indicated (02/26/17 02:08) Ecg Monitoring (02/26/17 02:08) Iv Access Insert/Monitor (02/26/17 02:08) Oximetry (02/26/17 02:08) Ondansetron Inj (Zofran Inj) (02/26/17 02:15) Sodium Chloride 0.9% Flush (Ns Flush) (02/26/17 02:15) Sodium Chlor 0.9% 1000 Ml Inj (Ns 1000 M (02/26/17 02:08) Labs Laboratory Tests Test 02/26/17 02:38 White Blood Count 7.1 TH/MM3 Red Blood Count 4.49 MIL/MM3 Hemoglobin 11.9 GM/DL Hematocrit 36.8 % Mean Corpuscular Volume 81.9 FL Mean Corpuscular Hemoglobin 26.6 PG Mean Corpuscular Hemoglobin Concent 32.4 % Red Cell Distribution Width 14.0 % Platelet Count 272 TH/MM3 Mean Platelet Volume 7.7 FL Neutrophils (%) (Auto) 54.4 % Lymphocytes (%) (Auto) 36.5 % Monocytes (%) (Auto) 7.7 % Eosinophils (%) (Auto) 0.9 % Basophils (%) (Auto) 0.5 % Neutrophils # (Auto) 3.9 TH/MM3 Lymphocytes # (Auto) 2.6 TH/MM3 Monocytes # (Auto) 0.5 TH/MM3 Eosinophils # (Auto) 0.1 TH/MM3 Basophils # (Auto) 0.0 TH/MM3 CBC Comment AUTO DIFF Differential Comment AUTO DIFF CONFIRMED Platelet Estimate NORMAL Platelet Morphology Comment NORMAL Red Cell Morphology Comment NORMAL Prothrombin Time 10.4 SEC Prothromb Time International Ratio 0.9 RATIO Activated Partial Thromboplast Time 24.2 SEC Urine Color YELLOW Urine Turbidity CLEAR Urine pH 5.5 Urine Specific [place] 1.018 Urine Protein NEG mg/dL Urine Glucose (UA) NEG mg/dL Urine Ketones NEG mg/dL Urine Occult Blood NEG Urine Nitrite NEG Urine Bilirubin NEG Urine Leukocyte Esterase NEG Urine WBC 0-2 /hpf Urine Squamous Epithelial Cells 0-5 /hpf Urine Calcium Oxalate Crystals FEW /hpf Urine Mucus MANY /lpf Microscopic Urinalysis Comment CULT NOT INDICATED Blood Urea Nitrogen 16 MG/DL Creatinine 0.71 MG/DL Random Glucose 86 MG/DL Total Protein 6.9 GM/DL Albumin 3.3 GM/DL Calcium Level 8.5 MG/DL Magnesium Level 2.1 MG/DL Alkaline Phosphatase 42 U/L Aspartate Amino Transf (AST/SGOT) 21 U/L Alanine Aminotransferase (ALT/SGPT) 16 U/L Total Bilirubin 0.7 MG/DL Sodium Level 139 MEQ/L Potassium Level 4.0 MEQ/L Chloride Level 110 MEQ/L Carbon Dioxide Level 21.7 MEQ/L Anion Gap 7 MEQ/L Estimat Glomerular Filtration Rate 101 ML/MIN Total Creatine Kinase 89 U/L Troponin I 0.03 NG/ML [facility] Medical Decision Making Medical Screen Exam Complete: Yes Emergency Medical Condition: Yes Medical Record Reviewed: Yes Interpretation(s) CBC & BMP Diagram 02/26/17 02:38 Total Protein 6.9, Albumin 3.3 L, Calcium Level 8.5, Magnesium Level 2.1, Alkaline Phosphatase 42 L, Aspartate Amino Transf (AST/SGOT) 21, Alanine Aminotransferase (ALT/SGPT) 16, Total Bilirubin 0.7 Vital Signs Date Time Temp Pulse Resp B/P (MAP) Pulse Ox O2 Delivery O2 Flow Rate FiO2 02/26/17 03:00 94 16 134/81 (98) 100 Room Air 02/26/17 02:00 98.4 97 17 140/88 (105) 100 Room Air troponin I: 0.03, not elevated ekg: Differential Diagnosis Dehydration, arrhythmia, ACS, bowel obstruction, electrolyte disturbance Narrative Course IV access obtained specimens collected and sent for resulting Patient refused EKG Patient refusing any imaging studies insisting that she is "" patient denies any abdominal pain pelvic pain or pelvic mass. Patient does not have any vaginal discharge or vaginal bleeding. Patient has been told that she is not capable being at 61 and she states that she just knows she is. Patient states she's had multiple imaging studies in the past month and they've all been negative and does not want any further radiation or imaging studies. Patient has had IV fluids and Zofran and feels clinically improved and is desirous of being discharged to home. Patient been ambulatory about the emergency department without any dizziness lightheadedness or ataxia of gait. Patient will be discharged to home with recommendation to follow up closely with her managing provider's. Patient presents with multiple complaints including near-syncope; imaging studies and EKG ordered and patient continues to refuse these diagnostic test therefore will be signed out AGAINST MEDICAL ADVICE as it is unclear as to what may have precipitated her symptoms and this information may provide viable information contributing to her diagnosis. AMA: The risks of leaving against medical advice without further evaluation treatment were discussed with the patient. These risks include cardiac dysfunction, cardiac dysrhythmia, possible heart attack, possible stroke or . The patient indicated understanding of these risks and appeared to have the capacity to make this decision. Diagnosis Primary Impression: Dizziness Scripts Ondansetron Odt (Zofran Odt) 4 Mg Tab 4 MG SL Q6HR Y for Nausea/Vomiting, #10 TAB 0 Refills Prov: Yessica Luque MD 02/26/17 Disposition: 07 AGAINST MEDICAL ADVICE Condition: Stable Yessica Luque MD Feb 26, 2017 02:10
[2017-02-26] MEDS ORDERED: ONDANSETRON HCL 4 MG/2 ML VIAL IVP ONE (02:15)
[2017-02-26] MEDS ORDERED: SODIUM CHLORIDE 0.9% FLUSH 10 ML FLUSH IVF PRN (02:15)
[2017-02-26 02:49] LABS: BLOOD, URINE NEG (NEG); GLUCOSE,URINE NEG (NEG); KETONE, URINE NEG (NEG); NITRITE,URINE NEG (NEG); PH, URINE 5.5 (5.0-8.5)
[2017-02-26 02:50] LABS: AUTOMATED NEUTROPHIL # 3.9 TH/MM3 (1.8-7.7); BASOPHIL % 0.5 % (0.0-2.0); EOSINOPHIL # 0.1 TH/MM3 (0-0.4); EOSINOPHIL % 0.9 % (0.0-4.0); HEMATOCRIT 36.8 % (35.0-46.0); LYMPH % 36.5 % (9.0-44.0); LYMPHOCYTE # 2.6 TH/MM3 (1.0-4.8); MEAN CELL VOLUME 81.9 FL (80.0-100.0); MEAN CORPUSCULAR HEMOGLOBIN 26.6 PG (27.0-34.0); MEAN CORPUSCULAR HGB CONC 32.4 % (32.0-36.0); MONO % 7.7 % (0.0-8.0); NEUT % 54.4 % (16.0-70.0); PLATELET COUNT 272 TH/MM3 (150-450); RED BLOOD COUNT 4.49 MIL/MM3 (4.00-5.30); WHITE BLOOD COUNT 7.1 TH/MM3 (4.0-11.0)
[2017-02-26 02:53] LABS: HEMO FLAGS AUTO DIFF
[2017-02-26 02:59] LABS: URINE COLOR YELLOW (YELLW/STRAW)
[2017-02-26 03:00] VITALS: BP 134/81; PULSE 94; RESP 16; O2SAT 100
[2017-02-26 03:00] LABS: CALCIUM OXALATE CRYSTALS,URINE FEW /hpf; MUCUS URINE MANY /lpf (OCC); SQUAMOUS EPITHELIAL CELL URINE 0-5 /hpf (0-5)
[2017-02-26 03:01] LABS: CHLORIDE 110 MEQ/L (98-107); COMMENT (UR) CULT NOT INDICATED; CULTURE IF INDICATED CULT NOT INDICATED; SODIUM (NA) 139 MEQ/L (136-145); WBC, URINE 0-2 /hpf (0-5)
[2017-02-26 03:06] LABS: ANION GAP 7 MEQ/L (5-15); BICARBONATE 21.7 MEQ/L (21.0-32.0); BLOOD UREA NITROGEN 16 MG/DL (7-18); MAGNESIUM 2.1 MG/DL (1.5-2.5)
[2017-02-26 03:09] LABS: ALT (GPT) 16 U/L (10-53); AST (GOT) 21 U/L (15-37); GLOMERULAR FILTRATION RATE 101 ML/MIN (>89)
[2017-02-26 03:11] LABS: APTT (PATIENT) 24.2 SEC (24.3-30.1); INTERNATIONAL NORMALIZED RATIO 0.9 RATIO; PROTHROMBIN TIME - PATIENT 10.4 SEC (9.8-11.6); TOTAL BILIRUBIN ADULT 0.7 MG/DL (0.2-1.0)
[2017-02-26 03:12] LABS: ALKALINE PHOSPHATASE 42 U/L (45-117)
[2017-02-26 03:17] LABS: PLATELET ESTIMATE SMEAR NORMAL (NORMAL); PLATELET MORPHOLOGY NORMAL (NORMAL); SCAN/DIFF AUTO DIFF CONFIRMED
[2017-02-26 03:19] LABS: CREATINE KINASE 89 U/L (26-192)
[2017-02-26] MEDS ORDERED: ZOFR4TAB3 SL ×2 (03:44→20:12)
[2017-02-26] MEDS ORDERED: ESCI20TA PO (20:07)
[2017-02-26] MEDS ORDERED: TRAZ50TA12 PO (20:07)
[2017-02-26] MEDS ORDERED: QUET1TAB8 PO (20:07)
[2017-02-26] MEDS ORDERED: HYDR-3533 PO (20:12)
== END 2017-02-26 04:14 | disposition left against medical advice (07) ==
LOC: PHED 22:47
DX: R42 Dizziness and giddiness (principal); F17.210 Nicotine dependence, cigarettes, uncomplicated; Z85.038 Personal history of other malignant neoplasm of large intestine; E78.00 Pure hypercholesterolemia, unspecified; I10 Essential (primary) hypertension
CPT/HCPCS: 80053; 81001; 82550; 83735; 84484; 85025; 85610; 85730; 96361; 96374; 99284; J2405; J7030

== ENCOUNTER 2017-02-26 18:51 | Emergency (ER) | payer OTHER ==
[~2017-02-26] VITALS: Ht 165.1 cm; Wt 55.0 kg
[~2017-02-26 18:51] MED LIST changes: +ZOFR4TAB3 SL
[2017-02-26 18:54] VITALS: BP 165/86; PULSE 112; RESP 20; TEMP 98.7; O2SAT 98
--- NOTE | 2017-02-26 19:17 | PD ---
Physical Exam Date Seen by Provider: Feb 26, 2017 Time Seen by Provider: 19:13 Narrative 61 y/o female with SUH/Migraine/Palpitations/Nausea/Vomiting/Sciatica/Sweats at night. C/O anxiety and states fell twice today. States Pain 10/10. "Pain is Everywhere". Dr Teague is Pain Management Doctor. Feels Dehydrated. Patient was seen yesterday. Vital Signs reviewed. Patient is Stable and awaiting Bed Placement. Data Data Last Documented VS Vital Signs Date Time Temp Pulse Resp B/P (MAP) Pulse Ox O2 Delivery O2 Flow Rate FiO2 02/26/17 18:54 98.7 112 20 165/86 (112) 98 Room Air [facility] Medical Record Reviewed: Yes Supervised Visit with MARIN: Yes Condition: Stable Gurpreet Perez Feb 26, 2017 19:17
[2017-02-26 19:55] VITALS: BP 129/88; PULSE 105; RESP 16; TEMP 99; O2SAT 98
[2017-02-26] MEDS ORDERED: ESCI20TA PO (20:07)
[2017-02-26] MEDS ORDERED: TRAZ50TA12 PO (20:07)
[2017-02-26] MEDS ORDERED: QUET1TAB8 PO (20:07)
[2017-02-26] MEDS ORDERED: HYDR-3533 PO (20:12)
[2017-02-26] MEDS ORDERED: ZOFR4TAB3 SL (20:12)
--- NOTE | 2017-02-26 20:12 | PD ---
HPI Chief Complaint: Pain: Acute or Chronic Time Seen by Provider: 19:50 Travel History International Travel<30 days: No Contact w/Intl Traveler<30days: No Traveled to known affect area: No History of Present Illness HPI Pt is 61 yo female. Complains of chronic pain primarily. Total body pain is reported. Additional complaints include anxiety and falls. Pt reports pain is severe. Pain management follow up is pending. Complaints of dehydration also offered. Insomnia reported. PFSH Past Medical History Asthma: Yes Anxiety: Yes Depression: Yes Cancer: Yes (COLON-2015) Cardiovascular Problems: Yes (SKIPS BEAT/RAPID HEART RATE) High Cholesterol: Yes Diminished Hearing: No GERD: Yes Hypertension: Yes Kidney Stones: Yes Musculoskeletal: Yes (SCIATICA) Respiratory: Yes (asthma) Immunizations Current: Yes Migraines: Yes Menopausal: Yes : 3 Para: 3 Tubal Ligation: Yes Past Surgical History Abdominal Surgery: Yes (COLON/BIOPSY 11/05/14, COLON SURGERY R/T CA, GALL STONES ) Cholecystectomy: Yes Hysterectomy: No Social History Alcohol Use: No Tobacco Use: Yes (OCCASIONALLY) Substance Use: Yes (MARIJUANA OCCASIONALLY) Allergies-Medications (Allergen,Severity, Reaction): Coded Allergies: hydromorphone (Unverified Allergy, Severe, Nausea/Vomiting, 02/26/17) "I BROKE OUT IN A SWEAT, FELT HOT ALL OVER AND WAS FREAKING OUT" azithromycin (Unverified Allergy, Intermediate, RASH, ITCHING, 02/26/17) cephalexin (Unverified Allergy, Mild, RASH, 02/26/17) tramadol (Unverified Allergy, Mild, Rash, 02/26/17) on back of neck Reported Meds & Prescriptions Reported Meds & Active Scripts Active Lortab (Hydrocodone-Acetaminophen) 5-325 Mg Tab 1-2 Tab PO Q6H PRN Zofran Odt (Ondansetron Odt) 4 Mg Tab 4 Mg SL Q6HR PRN Lisinopril 5 Mg Tab 5 Mg PO DAILY Reported Robaxin (Methocarbamol) 750 Mg Tab 750 Mg PO QID Quetiapine (Quetiapine Fumarate) 100 Mg Tab 100 Mg PO HS Trazodone (Trazodone HCl) 50 Mg Tab 50 Mg PO HS Escitalopram (Escitalopram Oxalate) 20 Mg Tab 20 Mg PO DAILY Megestrol (Megestrol Acetate) 40 Mg Tab 40 Mg PO QID Aspirin 81 Mg Chew 81 Mg CHEW DAILY Klonopin (Clonazepam) 0.5 Mg Tab 0.5 Mg PO BID Loraine-D 24 Hour Allergy (Fexofenadine-Pseudoephedrine ER 24 HR) 180-240 Escobar 1 Tab PO DAILY Proair Hfa 8.5 GM Inh (Albuterol Sulfate) 90 Mcg/Act Aer 1 Puff INH Q6HR PRN 108 mcg/actuation Ventolin Hfa 18 GM Inh (Albuterol Sulfate) 90 Mcg/Act Aer 2 Puff INH Q4H PRN Review of Systems Except as stated in HPI: all other systems reviewed are Neg General / Constitutional: Positive: Fever Cardiovascular: Positive: Palpitations, No: Syncope, Dyspnea on exertion Respiratory: No: Shortness of Breath, Stridor Physical Exam Narrative GENERAL: 61 yo F, wnwd, no obvious distress SKIN: Warm and dry. HEAD: Atraumatic. Normocephalic. EYES: Pupils equal and round. No scleral icterus. No injection or drainage. ENT: No nasal bleeding or discharge. Mucous membranes pink and moist. NECK: Trachea midline. No JVD. CARDIOVASCULAR: Regular rate and rhythm. RESPIRATORY: No accessory muscle use. Clear to auscultation. Breath sounds equal bilaterally. GASTROINTESTINAL: Abdomen soft, non-tender, nondistended. Hepatic and splenic margins not palpable. MUSCULOSKELETAL: Extremities without clubbing, cyanosis, or edema. No obvious deformities. Ambulatory. NEUROLOGICAL: Awake and alert. No obvious cranial nerve deficits. Motor grossly within normal limits. Five out of 5 muscle strength in the arms and legs. Normal speech. PSYCHIATRIC: Appropriate mood and affect; insight and judgment normal. Data Data Last Documented VS Mild tachycardia noted Orders Orders Acetamin-Hydrocod 325-5 Mg ([place] 5-325 (02/26/17 20:15) Ondansetron Odt (Zofran Odt) (02/26/17 20:15) MDM Medical Decision Making Medical Screen Exam Complete: Yes Emergency Medical Condition: Yes Differential Diagnosis chronic pain, insomnia, anemia, opioid withdrawal, medication side effects, anxiety Narrative Course Pt with multiple complaints. Frequent ER visitor. Pain control is prevailing concern today, which we'll address. Throughout interview reiteration of insomnia noted. Pt has pain management follow up. Diagnosis Primary Impression: Insomnia Qualified Codes: G47.00 - Insomnia, unspecified Additional Impressions: Chronic pain Qualified Codes: G89.29 - Other chronic pain Chronic nausea Referrals: Pain Management 2 days Additional Instructions: You have a choice when it comes to health care, and we are glad that you chose [facility]. Hopefully, we have met your expectations on today's visit. You are welcome to return to [facility] at any time, as we are committed to meeting the health care needs of our community. Med/Other Pt SpecificInfo: Prescription(s) given Scripts Hydrocodone-Acetaminophen (Lortab) 5-325 Mg Tab 1-2 TAB PO Q6H Y for PAIN SCALE 6 TO 10, #20 TAB 0 Refills Prov: Jaleel Charles MD 02/26/17 Disposition: 01 DISCHARGE HOME Condition: Stable Jaleel Charles MD Feb 26, 2017 20:12
[2017-02-26] MEDS ORDERED: ACETAMINOPHEN/HYDROcodone 325 MG/5 MG TAB PO ONE (20:15)
[2017-02-26] MEDS ORDERED: ONDANSETRON ODT 4 MG TAB PO ONE (20:15)
== END 2017-02-26 20:40 | disposition home or self-care (01) ==
LOC: NEPD 18:51
DX: G47.00 Insomnia, unspecified (principal); G89.29 Other chronic pain; R11.0 Nausea
CPT/HCPCS: 99284

== ENCOUNTER 2017-03-06 22:56 | Emergency (ER) | payer OTHER ==
[~2017-03-06] VITALS: Ht 154.9 cm; Wt 55.0 kg
[~2017-03-06 22:56] MED LIST changes: -CLON0.5T PO; +ESCI20TA PO; +HYDR-3533 PO; +QUET1TAB8 PO; +TRAZ50TA12 PO; -ZOFR4TAB PO
[2017-03-06 22:58] VITALS: BP 172/91; PULSE 102; RESP 16; TEMP 98.6; O2SAT 96
[2017-03-07] MEDS ORDERED: ROBA750T PO (00:16)
[2017-03-07 00:21] VITALS: BP 155/88; PULSE 92; RESP 20; O2SAT 97
[2017-03-07] MEDS ORDERED: LISINOPRIL 5 MG TAB PO ONE (01:45)
[2017-03-07] MEDS ORDERED: KETOROLAC TROMETHAMINE 60 MG/2 ML (IM) VIAL IM ONE (01:45)
[2017-03-07 01:50] VITALS: BP 143/88; PULSE 89; RESP 18; O2SAT 98
--- NOTE | 2017-03-07 02:03 | PD ---
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 She reports that she developed an exacerbation of the pain this evening. She reports that she normally has Percocet for the pain, however she missed her last appointment with her pain management doctor. She reports that she has an appointment with her pain management doctor scheduled for Sunday for an injection in her back to help with the pain. She reports that she has sciatica involving both legs, however today the pain is worse going down the right leg. She reports the pain is over the right buttock and radiates down to the foot. She denies having any weakness in her extremities. She denies having any loss of bowel or bladder control. She denies having any fevers or night sweats. The patient reports that the pain was so severe that she developed increased anxiety, a sensation of palpitations and also noticed that her blood pressure went off. She reports that she is out of her blood pressure medication. She did call her primary care physician who is out of town, however her nurse called in a prescription to her pharmacy. She reports that she's been out of her lisinopril 5 mg for the last month. On review of systems otherwise, the patient denies any cough, congestion, neck pain, chest pain, shortness of breath, abdominal pain, vomiting , diarrhea, urinary symptoms, or neurologic symptoms. The patient denies having any trauma or recent injury to her back. [facility] Past Medical History Narrative Medical The patient's past medical history is significant for chronic back pain related to sciatica, history of anxiety disorder, history of hypertension, history of depression, kidney stones, acid reflux, migraine headaches. Asthma: Yes Anxiety: Yes Depression: Yes Cancer: Yes (COLON-2015) Cardiovascular Problems: Yes (SKIPS BEAT/RAPID HEART RATE) High Cholesterol: Yes Diminished Hearing: No GERD: Yes Hypertension: Yes Kidney Stones: Yes Musculoskeletal: Yes (SCIATICA) Respiratory: Yes (asthma) Immunizations Current: No Migraines: Yes Influenza Vaccination: No ?: Not Menopausal: Yes : 3 Para: 3 Tubal Ligation: Yes Past Surgical History Narrative Surgical The patient's past surgical history is significant for a colon cancer resection , cholecystectomy. Abdominal Surgery: Yes (COLON/BIOPSY 11/05/14, COLON SURGERY R/T CA, GALL STONES ) Section: No Cholecystectomy: Yes Hysterectomy: No Social History Alcohol Use: No Tobacco Use: Yes (2 cigs per day) Substance Use: Yes (THC) Allergies-Medications (Allergen,Severity, Reaction): Coded Allergies: hydromorphone (Unverified Allergy, Severe, Nausea/Vomiting, 02/26/17) "I BROKE OUT IN A SWEAT, FELT HOT ALL OVER AND WAS FREAKING OUT" azithromycin (Unverified Allergy, Intermediate, RASH, ITCHING, 02/26/17) cephalexin (Unverified Allergy, Mild, RASH, 02/26/17) tramadol (Unverified Allergy, Mild, Rash, 02/26/17) on back of neck Reported Meds & Prescriptions Reported Meds & Active Scripts Active Lortab (Hydrocodone-Acetaminophen) 5-325 Mg Tab 1-2 Tab PO Q6H PRN Zofran Odt (Ondansetron Odt) 4 Mg Tab 4 Mg SL Q6HR PRN Lisinopril 5 Mg Tab 5 Mg PO DAILY Reported Robaxin (Methocarbamol) 750 Mg Tab 750 Mg PO QID Quetiapine (Quetiapine Fumarate) 100 Mg Tab 100 Mg PO HS Trazodone (Trazodone HCl) 50 Mg Tab 50 Mg PO HS Escitalopram (Escitalopram Oxalate) 20 Mg Tab 20 Mg PO DAILY Megestrol (Megestrol Acetate) 40 Mg Tab 40 Mg PO QID Aspirin 81 Mg Chew 81 Mg CHEW DAILY Klonopin (Clonazepam) 0.5 Mg Tab 0.5 Mg PO BID Loraine-D 24 Hour Allergy (Fexofenadine-Pseudoephedrine ER 24 HR) 180-240 Escobar 1 Tab PO DAILY Proair Hfa 8.5 GM Inh (Albuterol Sulfate) 90 Mcg/Act Aer 1 Puff INH Q6HR PRN 108 mcg/actuation Ventolin Hfa 18 GM Inh (Albuterol Sulfate) 90 Mcg/Act Aer 2 Puff INH Q4H PRN Review of Systems Except as stated in HPI: all other systems reviewed are Neg General / Constitutional: No: Fever Eyes: No: Visual changes HENT: No: Headaches Cardiovascular: No: Chest Pain or Discomfort Respiratory: No: Shortness of Breath Gastrointestinal: No: Abdominal Pain Genitourinary: No: Dysuria Musculoskeletal: Positive: Myalgias, Arthralgias, Pain Skin: No Rash Neurologic: No: Weakness Psychiatric: Positive: Anxiety, No: Depression Endocrine: No: Polydipsia Hematologic/Lymphatic: No: Easy Bruising Physical Exam Narrative General: The patient is a well-developed well-nourished female in no acute distress. Head and Neck exam: Head is normocephalic atraumatic. Eyes: EOMI, pupils are equal round and reactive to light. Nose: Midline septum with pink mucous membranes Mouth: Dentition unremarkable. Moist mucus membranes. Posterior oropharynx is not erythematous. No tonsillar hypertrophy. Uvula midline. Airway patent. Neck: No palpable lymphadenopathy. No nuchal rigidity. No thyromegaly. Cardiovascular: Regular rate and rhythm without murmurs, gallops, or rubs. Lungs: Clear to auscultation bilaterally. No wheezes, rhonchi, or rales. Abdomen: Soft, without tenderness to palpation in all 4 quadrants of the abdomen. No guarding, rebound, or rigidity. Normal bowel sounds are audible. No tenderness on palpation of McBurney's point. Extremities: No clubbing, cyanosis, or edema. 2+ pulses in all 4 extremities. Back: No spinous process tenderness to palpation. No costovertebral angle tenderness to palpation. The patient reports having tenderness on palpation along the right buttock, SI joint area. No erythema or ecchymosis. No warmth or edema on palpation. Neurologic Exam: Cranial nerves 2-12 were intact on exam. Strength is 5/5 in all 4 extremities. No sensory deficits noted. Negative straight leg raise bilaterally. Skin Exam: No rash noted. Intact skin that is warm and dry. Data Data Last Documented VS Vital Signs Date Time Temp Pulse Resp B/P (MAP) Pulse Ox O2 Delivery O2 Flow Rate FiO2 03/07/17 01:50 89 18 143/88 (106) 98 Room Air 03/06/17 22:58 98.6 Orders Orders Ketorolac Inj (Toradol Inj) (03/07/17 01:45) Lisinopril (Prinivil) (03/07/17 01:45) MDM Medical Decision Making Medical Screen Exam Complete: Yes Emergency Medical Condition: Yes Medical Record Reviewed: Yes Differential Diagnosis Uncontrolled hypertension, versus irregular heartbeat, versus anxiety disorder, versus elevated blood pressure related to pain Narrative Course During the course of the patients emergency department visit, the patients history, examination, and differential diagnosis were reviewed with the patient. The patient on arrival had a low-grade sinus tachycardia, however after resting in the bed her heart rate improved down to normal. The patient will be provided Toradol for pain IM. The patient was started back on her lisinopril 5 mg by mouth. The patient reports that she has a prescription that is been filled for the lisinopril that she will be of the pickup in the morning. The patient is resting comfortably and feels better, is alert and in no distress. The patients results and examination findings were discussed with the patient. The repeat examination is unremarkable and benign. The history, exam, diagnostic testing, and current condition do not suggest any significant pathology to warrant further testing, continued ED treatment, admission, or surgical evaluation at this point. The vital signs have been stable. The patient does not have uncontrollable pain, intractable vomiting, or other significant symptoms. The patient's condition is stable and appropriate for discharge. The patient will pursue further outpatient evaluation with a primary care physician or other designated or consulting physician as indicated in the discharge instructions. The patient expressed understanding and was agreeable with this plan. Diagnosis Primary Impression: Sciatic pain Qualified Codes: M54.31 - Sciatica, right side Additional Impression: Essential (primary) hypertension Referrals: Pain Management 3 days Patient Instructions: Back Pain (ED), General Instructions, Hypertension (ED) Med/Other Pt SpecificInfo: No Change to Meds Disposition: 01 DISCHARGE HOME Condition: Stable Ninfa Lee MD Mar 07, 2017 02:03
== END 2017-03-07 02:31 | disposition home or self-care (01) ==
LOC: NEPE 22:56
DX: M54.31 Sciatica, right side (principal); I10 Essential (primary) hypertension; R00.2 Palpitations; J45.909 Unspecified asthma, uncomplicated; F41.9 Anxiety disorder, unspecified; F32.9 Major depressive disorder, single episode, unspecified; E78.00 Pure hypercholesterolemia, unspecified; K21.9 Gastro-esophageal reflux disease without esophagitis; F17.210 Nicotine dependence, cigarettes, uncomplicated
CPT/HCPCS: 96372; 99284; J1885

== ENCOUNTER 2017-05-24 12:06 | Emergency (ER) | payer OTHER ==
[~2017-05-24] VITALS: Ht 154.9 cm; Wt 60.0 kg
[~2017-05-24 12:06] MED LIST changes: +ASPI-516 CHEW; -ASPI81CH CHEW; -METH750T PO; +ROBA750T PO
[2017-05-24 12:18] VITALS: BP 159/88; PULSE 111; RESP 16; TEMP 98.5; O2SAT 99
[2017-05-24] MEDS ORDERED: ZOFR4TAB PO (13:26)
[2017-05-24] MEDS ORDERED: TYLETAB34 PO (13:26)
--- NOTE | 2017-05-24 13:29 | PD ---
HPI Chief Complaint: sciatica Time Seen by Provider: 13:02 Travel History International Travel<30 days: No Contact w/Intl Traveler<30days: No Traveled to known affect area: No History of Present Illness HPI The patient was seen and examined in the presence of the nurse. This patient complains of sciatica pain. She says she's had sciatic pain for 50 years. She has low back pain that radiates down the back of either leg to the level of the knee. The requests some short term medication relief. This is a chronic problem and she is seen pain management for in the past. No acute injury. Denies fever or neurologic deficit. Symptoms severity is mild to moderate PFSH Past Medical History Asthma: Yes Anxiety: Yes Depression: Yes Cancer: Yes (COLON-2015) Cardiovascular Problems: Yes (SKIPS BEAT/RAPID HEART RATE) High Cholesterol: Yes Diminished Hearing: No GERD: Yes Hypertension: Yes Kidney Stones: Yes Musculoskeletal: Yes (SCIATICA) Respiratory: Yes Immunizations Current: No Migraines: Yes Tetanus Vaccination: < 5 Years Influenza Vaccination: Yes ?: Not Menopausal: Yes : 3 Para: 3 Tubal Ligation: Yes Past Surgical History Abdominal Surgery: Yes (COLON/BIOPSY 11/05/14, COLON SURGERY R/T CA, GALL STONES ) Section: No Cholecystectomy: Yes Hysterectomy: No Social History Alcohol Use: No Tobacco Use: Yes (2 cigs per day) Substance Use: Yes (THC) Allergies-Medications (Allergen,Severity, Reaction): Coded Allergies: hydromorphone (Unverified Allergy, Severe, Nausea/Vomiting, 05/24/17) "I BROKE OUT IN A SWEAT, FELT HOT ALL OVER AND WAS FREAKING OUT" azithromycin (Unverified Allergy, Intermediate, PT DENIES, 05/24/17) cephalexin (Unverified Allergy, Mild, RASH, 05/24/17) tramadol (Unverified Allergy, Mild, Rash, 05/24/17) on back of neck Reported Meds & Prescriptions Reported Meds & Active Scripts Active Zofran (Ondansetron HCl) 4 Mg Tab 4 Mg PO Q6HR PRN Tylenol-Codeine #3 (Acetaminophen-Codeine) 300-30 mg Tab 1 Tab PO Q6HR PRN Zofran Odt (Ondansetron Odt) 4 Mg Tab 4 Mg SL Q6HR PRN Lisinopril 5 Mg Tab 5 Mg PO DAILY Reported Robaxin (Methocarbamol) 750 Mg Tab 750 Mg PO QID Quetiapine (Quetiapine Fumarate) 100 Mg Tab 100 Mg PO HS Trazodone (Trazodone HCl) 50 Mg Tab 50 Mg PO HS Escitalopram (Escitalopram Oxalate) 20 Mg Tab 20 Mg PO DAILY Megestrol (Megestrol Acetate) 40 Mg Tab 40 Mg PO QID Aspirin 81 Mg Chew 81 Mg CHEW DAILY Klonopin (Clonazepam) 0.5 Mg Tab 0.5 Mg PO BID Loraine-D 24 Hour Allergy (Fexofenadine-Pseudoephedrine ER 24 HR) 180-240 Escobar 1 Tab PO DAILY Proair Hfa 8.5 GM Inh (Albuterol Sulfate) 90 Mcg/Act Aer 1 Puff INH Q6HR PRN 108 mcg/actuation Ventolin Hfa 18 GM Inh (Albuterol Sulfate) 90 Mcg/Act Aer 2 Puff INH Q4H PRN Review of Systems General / Constitutional: No: Fever HENT: No: Headaches Cardiovascular: No: Chest Pain or Discomfort Respiratory: No: Cough Physical Exam Narrative GASTROINTESTINAL: Abdomen soft, non-tender, nondistended. Positive bowel sounds. No hepato-splenomegaly, or palpable masses. No guarding. NEUROLOGICAL: Awake and alert. Pupils are equal round and reactive. Motor and sensory grossly within normal limits. Five out of 5 muscle strength in all muscle groups. Normal speech. Back: No midline tenderness or CVA tenderness Data Data Last Documented VS Vital Signs Date Time Temp Pulse Resp B/P (MAP) Pulse Ox O2 Delivery O2 Flow Rate FiO2 05/24/17 12:18 98.5 111 16 159/88 (111) 99 MDM Medical Decision Making Medical Screen Exam Complete: Yes Emergency Medical Condition: Yes Medical Record Reviewed: Yes Differential Diagnosis Sciatica, chronic pain syndrome, myalgias Narrative Course I have reviewed the patient's electronic medical record. No indication for emergent imaging today Neurologically intact Is minimally symptomatic Prescription for 15 Tylenol 3 written as well as some Zofran at her request The patient was advised to follow up with their physician and return if they worsen. Scripts Ondansetron (Zofran) 4 Mg Tab 4 MG PO Q6HR Y for NAUSEA OR VOMITING, #10 TAB 0 Refills Prov: Riki Iglesias MD 05/24/17 Acetaminophen-Codeine (Tylenol-Codeine #3) 300-30 mg Tab 1 TAB PO Q6HR Y for PAIN, #15 TAB 0 Refills Prov: Riki Iglesias MD 05/24/17 Riki Iglesias MD May 24, 2017 13:29
== END 2017-05-24 13:48 | disposition home or self-care (01) ==
LOC: PHED 12:06
DX: M54.42 Lumbago with sciatica, left side (principal); M54.41 Lumbago with sciatica, right side; I10 Essential (primary) hypertension; E78.00 Pure hypercholesterolemia, unspecified; Z72.0 Tobacco use; Z87.39 Personal history of other diseases of the musculoskeletal system and connective tissue; Z87.09 Personal history of other diseases of the respiratory system; Z86.59 Personal history of other mental and behavioral disorders; Z86.79 Personal history of other diseases of the circulatory system; Z87.442 Personal history of urinary calculi; Z86.69 Personal history of other diseases of the nervous system and sense organs; Z85.038 Personal history of other malignant neoplasm of large intestine
CPT/HCPCS: 99283

== ENCOUNTER 2017-07-31 12:15 | Emergency (ER) | payer OTHER ==
[~2017-07-31] VITALS: Ht 154.9 cm; Wt 60.1 kg
[~2017-07-31 12:15] MED LIST changes: -HYDR-3533 PO; +TYLETAB34 PO; +ZOFR4TAB PO
[2017-07-31 12:19] VITALS: BP 163/77; PULSE 96; RESP 18; TEMP 98.5; O2SAT 99
[2017-07-31] MEDS ORDERED: BENZ100 PO (13:13)
[2017-07-31] MEDS ORDERED: DOXY100C PO (13:13)
[2017-07-31] MEDS ORDERED: MELO15TA20 PO (13:13)
--- NOTE | 2017-07-31 13:14 | PD ---
HPI Chief Complaint: Musculoskeletal Complaint Time Seen by Provider: 12:27 Travel History International Travel<30 days: No Contact w/Intl Traveler<30days: No Traveled to known affect area: No History of Present Illness HPI 61-year-old female here with productive cough ongoing for over 2 weeks. Subjective fevers. Symptoms severity is moderate. No aggravating or alleviating factors. She has attempted [id number] cough medication with minimal relief. Denies chest pain or shortness of breath. Patient is smoker. She also reports pain in her right knee and right hand which is ongoing for several months. PFSH Past Medical History Asthma: Yes Anxiety: Yes Depression: Yes Cancer: Yes (COLON-2015) Cardiovascular Problems: Yes High Cholesterol: Yes Diminished Hearing: No GERD: Yes Hypertension: Yes Kidney Stones: Yes Musculoskeletal: Yes (SCIATICA) Respiratory: Yes Immunizations Current: No Migraines: Yes Menopausal: Yes : 3 Para: 3 Tubal Ligation: Yes Past Surgical History Abdominal Surgery: Yes (COLON/BIOPSY 11/05/14, COLON SURGERY R/T CA, GALL STONES ) Section: No Cholecystectomy: Yes Hysterectomy: No Social History Alcohol Use: No Tobacco Use: Yes (2 cigs per day) Substance Use: Yes (THC) Allergies-Medications (Allergen,Severity, Reaction): Coded Allergies: hydromorphone (Unverified Allergy, Severe, Nausea/Vomiting, 07/31/17) "I BROKE OUT IN A SWEAT, FELT HOT ALL OVER AND WAS FREAKING OUT" azithromycin (Unverified Allergy, Intermediate, PT DENIES, 07/31/17) cephalexin (Unverified Allergy, Mild, RASH, 07/31/17) tramadol (Unverified Allergy, Mild, Rash, 07/31/17) on back of neck Reported Meds & Prescriptions Reported Meds & Active Scripts Active Zofran (Ondansetron HCl) 4 Mg Tab 4 Mg PO Q6HR PRN Tylenol-Codeine #3 (Acetaminophen-Codeine) 300-30 mg Tab 1 Tab PO Q6HR PRN Zofran Odt (Ondansetron Odt) 4 Mg Tab 4 Mg SL Q6HR PRN Lisinopril 5 Mg Tab 5 Mg PO DAILY Reported Robaxin (Methocarbamol) 750 Mg Tab 750 Mg PO QID Quetiapine (Quetiapine Fumarate) 100 Mg Tab 100 Mg PO HS Trazodone (Trazodone HCl) 50 Mg Tab 50 Mg PO HS Escitalopram (Escitalopram Oxalate) 20 Mg Tab 20 Mg PO DAILY Megestrol (Megestrol Acetate) 40 Mg Tab 40 Mg PO QID Aspirin 81 Mg Chew 81 Mg CHEW DAILY Klonopin (Clonazepam) 0.5 Mg Tab 0.5 Mg PO BID Loraine-D 24 Hour Allergy (Fexofenadine-Pseudoephedrine ER 24 HR) 180-240 Escobar 1 Tab PO DAILY Proair Hfa 8.5 GM Inh (Albuterol Sulfate) 90 Mcg/Act Aer 1 Puff INH Q6HR PRN 108 mcg/actuation Ventolin Hfa 18 GM Inh (Albuterol Sulfate) 90 Mcg/Act Aer 2 Puff INH Q4H PRN Review of Systems Except as stated in HPI: all other systems reviewed are Neg General / Constitutional: Positive: Fever Eyes: No: Visual changes HENT: No: Headaches Cardiovascular: No: Chest Pain or Discomfort Respiratory: Positive: Cough Gastrointestinal: No: Abdominal Pain Genitourinary: No: Dysuria Physical Exam Narrative GENERAL: Well-nourished, well-developed patient. SKIN: Focused skin assessment warm/dry. HEAD: Normocephalic. EYES: No injection or drainage. NECK: Supple, trachea midline. CARDIOVASCULAR: Regular rate and rhythm without murmurs, gallops, or rubs. RESPIRATORY: Breath sounds equal bilaterally. No accessory muscle use. Rhonchorous cough GASTROINTESTINAL: Abdomen soft, non-tender, nondistended. MUSCULOSKELETAL: No cyanosis, or edema. No bony tenderness BACK: Nontender without obvious deformity. No CVA tenderness. Data Data Last Documented VS Vital Signs Date Time Temp Pulse Resp B/P (MAP) Pulse Ox O2 Delivery O2 Flow Rate FiO2 07/31/17 12:25 18 07/31/17 12:19 98.5 96 163/77 (105) 99 MDM Medical Decision Making Medical Screen Exam Complete: Yes Emergency Medical Condition: Yes Differential Diagnosis Bronchitis, pneumonia, URI, arthralgia Narrative Course 61-year-old female here with multiple chief complaints. He is reporting a productive cough for the last 2 weeks. Patient will be treated for bronchitis. Diagnosis Primary Impression: Bronchitis Referrals: Primary Care Physician Scripts Benzonatate (Tessalon Perles) 100 Mg Cap 200 MG PO TID Y for COUGH, #14 CAP 0 Refills Prov: Tiffany Underwood 07/31/17 Meloxicam (Meloxicam) 15 Mg Tab 15 MG PO DAILY for Arthritis Pain, #30 TAB 0 Refills Prov: Tiffany Underwood 07/31/17 Doxycycline Hyclate (Doxycycline Hyclate) 100 Mg Cap 100 MG PO BID for Infection, #20 CAP 0 Refills Prov: Tiffany Underwood 07/31/17 Disposition: 01 DISCHARGE HOME Condition: Stable Tiffany Underwood Jul 31, 2017 13:13
== END 2017-07-31 13:46 | disposition home or self-care (01) ==
LOC: PHEFT 12:15
DX: J40 Bronchitis, not specified as acute or chronic (principal); F17.210 Nicotine dependence, cigarettes, uncomplicated; I10 Essential (primary) hypertension
CPT/HCPCS: 99284

== ENCOUNTER 2017-11-13 15:44 | Emergency (ER) | payer OTHER ==
[2017-11-13 16:25] LABS: BILIRUBIN, URINE NEG (NEG); BLOOD, URINE NEG (NEG); GLUCOSE,URINE NEG (NEG); KETONE, URINE NEG (NEG); NITRITE,URINE NEG (NEG); URINE COLOR YELLOW (YELLW/STRAW); URINE LEUKOCYTE ESTERASE NEG (NEG)
[2017-11-13 16:34] LABS: CHLORIDE 112 MEQ/L (98-107); POTASSIUM 3.5 MEQ/L (3.5-5.1); SODIUM (NA) 139 MEQ/L (136-145)
[2017-11-13 16:36] LABS: METHOD OF COLLECTION CLEAN CATCH
[2017-11-13 16:37] LABS: ALBUMIN 3.5 GM/DL (3.4-5.0); ANION GAP 7 MEQ/L (5-15); BICARBONATE 20.1 MEQ/L (21.0-32.0); CALCIUM 9.2 MG/DL (8.5-10.1); COMMENT (UR) CULT NOT INDICATED; CULTURE IF INDICATED CULT NOT INDICATED; SQUAMOUS EPITHELIAL CELL URINE > 8 /hpf (0-5); WBC, URINE 0-2 /hpf (0-5)
[2017-11-13 16:38] LABS: BLOOD UREA NITROGEN 11 MG/DL (7-18); GLUCOSE,RANDOM 133 MG/DL (74-106)
[2017-11-13 16:40] LABS: ALT (GPT) 14 U/L (10-53)
[2017-11-13 16:41] LABS: AST (GOT) 14 U/L (15-37); CREATININE 0.84 MG/DL (0.50-1.00); GLOMERULAR FILTRATION RATE 83 ML/MIN (>89)
[2017-11-13 16:42] LABS: TOTAL BILIRUBIN ADULT 0.5 MG/DL (0.2-1.0); TOTAL PROTEIN 7.8 GM/DL (6.4-8.2)
[2017-11-13 16:43] LABS: ALKALINE PHOSPHATASE 68 U/L (45-117); AUTOMATED NEUTROPHIL # 2.4 TH/MM3 (1.8-7.7); BASOPHIL % 0.3 % (0.0-2.0); EOSINOPHIL % 0.9 % (0.0-4.0); HEMATOCRIT 34.7 % (35.0-46.0); HEMO FLAGS AUTO DIFF; HEMOGLOBIN 11.2 GM/DL (11.6-15.3); LYMPH % 48.5 % (9.0-44.0); LYMPHOCYTE # 2.7 TH/MM3 (1.0-4.8); MEAN CELL VOLUME 76.8 FL (80.0-100.0); MEAN CORPUSCULAR HEMOGLOBIN 24.8 PG (27.0-34.0); MEAN CORPUSCULAR HGB CONC 32.3 % (32.0-36.0); MEAN PLATELET VOLUME 8.3 FL (7.0-11.0); MONO % 5.2 % (0.0-8.0); MONOCYTE # 0.3 TH/MM3 (0-0.9); NEUT % 45.1 % (16.0-70.0); PLATELET COUNT 381 TH/MM3 (150-450); RED BLOOD COUNT 4.53 MIL/MM3 (4.00-5.30); RED CELL DISTRIBUTION WIDTH 14.4 % (11.6-17.2); WHITE BLOOD COUNT 5.4 TH/MM3 (4.0-11.0)
[2017-11-13 18:09] LABS: SCAN/DIFF AUTO DIFF CONFIRMED; TARGET CELLS 1+ (NORMAL)
== END 2017-11-13 17:42 | disposition home or self-care (01) ==
LOC: PHED 15:44
DX: R35.8 Other polyuria (principal); D64.9 Anemia, unspecified; J45.909 Unspecified asthma, uncomplicated; F41.9 Anxiety disorder, unspecified; F32.9 Major depressive disorder, single episode, unspecified; E78.00 Pure hypercholesterolemia, unspecified; K21.9 Gastro-esophageal reflux disease without esophagitis; I10 Essential (primary) hypertension; Z87.442 Personal history of urinary calculi
CPT/HCPCS: 80053; 81001; 85025; 99283